=== PATIENT | female | born 1965 | race Caucasian/White ===

== ENCOUNTER → 2024-07-28 15:49 | Outpatient (REF) | payer OTHER, SELFPAY | LOC: RAD 15:49 | PROVIDERS: ATTENDING PHYSICIAN Family Medicine | DX: Z12.31 Encounter for screening mammogram for malignant neoplasm of breast (principal); F17.210 Nicotine dependence, cigarettes, uncomplicated; J43.9 Emphysema, unspecified; Z72.0 Tobacco use | CPT/HCPCS: 71046; 77063; 77067 ==

== ENCOUNTER → 2024-10-26 08:20 | Outpatient (REF) | payer OTHER, SELFPAY | LOC: RAD 08:20 | PROVIDERS: ATTENDING PHYSICIAN Family Medicine | DX: R10.32 Left lower quadrant pain (principal) | CPT/HCPCS: 76882 ==

== ENCOUNTER → 2024-12-02 08:39 | Outpatient (REF) | payer OTHER, SELFPAY | LOC: RCS 08:39 | PROVIDERS: FAMILY PHYSICIAN Family Medicine | DX: R55 Syncope and collapse (principal) | CPT/HCPCS: 93225; 93226 ==